=== PATIENT | female | born 2000 | race Caucasian/White ===

== ENCOUNTER 2025-11-13 17:08 | Emergency (ER) | payer OTHER ==
[~2025-11-13] VITALS: Ht 149.9 cm; Wt 52.0 kg
[2025-11-13 17:14] VITALS: O2SAT 100
[2025-11-13 18:15] LABS: CLARITY URINE CLEAR (CLEAR); COLOR URINE YELLOW (YELLOW); GLUCOSE URINE NEGATIVE (NEGATIVE); KETONES URINE 3+ (NEGATIVE); LEUKOCYTE ESTERASE URINE NEGATIVE (NEGATIVE); NITRITE URINE NEGATIVE (NEGATIVE); OCCULT BLOOD URINE NEGATIVE (NEGATIVE); PH URINE 5.5 (4.5-8.0); PROTEIN URINE NEGATIVE (NEGATIVE); SPECIFIC GRAVITY URINE 1.025 (1.005-1.030); UROBILINOGEN URINE 0.2 E.U./dL (0.2-1.0)
[2025-11-13] MEDS: KETOROLAC 15MG/ML VIAL IM ONE (18:55)
[2025-11-13] MEDS ORDERED: VAGICR TOP (19:46)
[2025-11-13] MEDS ORDERED: MOXI400T31 PO (19:52)
[2025-11-13 20:10] VITALS: BP 131/62; PULSE 78; RESP 18; TEMP 37; O2SAT 99
== END 2025-11-13 20:15 | disposition home or self-care (01) ==
LOC: ER 17:08
DX: N76.0 Acute vaginitis (principal); J45.909 Unspecified asthma, uncomplicated; Z98.890 Other specified postprocedural states; Z88.6 Allergy status to analgesic agent; Z88.5 Allergy status to narcotic agent
CPT/HCPCS: 87491; 87591; 81003; 81025; 87210; 96372; 99284; J1885; Z7610